=== PATIENT | male | born 1965 | race Caucasian/White ===

== ENCOUNTER 2017-12-16 11:31 | Outpatient (CLI) | payer MEDICARE ==
[~2017-12-16] VITALS: Ht 177.8 cm; Wt 125.0 kg
[2017-12-16 12:34] VITALS: BP 116/68; PULSE 78; TEMP 97.9
[2017-12-16] MEDS ORDERED: LIPITOR 40MG TA40 MG PO (12:36)
[2017-12-16] MEDS ORDERED: CARDIZEM CD 24240 MG PO (12:36)
[2017-12-16] MEDS ORDERED: PRINIVIL20 MG PO (12:37)
[2017-12-16] MEDS ORDERED: ASACOL HD800 MG PO (12:39)
[2017-12-16] MEDS ORDERED: PRADAXA 150MG150 MG PO (12:40)
[2017-12-16] MEDS ORDERED: GLUCOPHAGE1000 MG PO (12:40)
[2017-12-16] MEDS ORDERED: FLOMAX 0.40.4 MG/CAP PO (12:41)
[2017-12-16] MEDS ORDERED: LANTUS100 U/ML SQ (12:42)
[2017-12-16] MEDS ORDERED: NOVOLOG 100U100 U/M1 SQ (12:42)
[2017-12-16] MEDS ORDERED: CEPHALEXIN500 M1 PO (14:55)
[2017-12-16 15:05] VITALS: BP 107/61; PULSE 91; TEMP 97.8
== END 2017-12-16 15:47 | disposition home or self-care (01) ==
LOC: COL.CAR 11:31
DX: I48.0 Paroxysmal atrial fibrillation (principal); E11.9 Type 2 diabetes mellitus without complications; I10 Essential (primary) hypertension; E78.5 Hyperlipidemia, unspecified; K50.90 Crohn's disease, unspecified, without complications; G47.33 Obstructive sleep apnea (adult) (pediatric); E66.9 Obesity, unspecified; Z68.41 Body mass index [BMI] 40.0-44.9, adult; Z79.01 Long term (current) use of anticoagulants; Z79.4 Long term (current) use of insulin; Z87.891 Personal history of nicotine dependence; Z85.51 Personal history of malignant neoplasm of bladder; Z82.49 Family history of ischemic heart disease and other diseases of the circulatory system

== ENCOUNTER 2019-01-14 16:11 | Inpatient (IN) | payer MEDICARE ==
[~2019-01-14] VITALS: Ht 177.8 cm; Wt 122.4 kg
[~2019-01-14 16:11] MED LIST: ASACOL HD800 MG PO; CARDIZEM CD 24240 MG PO; CEPHALEXIN500 M1 PO; FLOMAX 0.40.4 MG/CAP PO; GLUCOPHAGE1000 MG PO; LANTUS100 U/ML SQ; LIPITOR 40MG TA40 MG PO; NOVOLOG 100U100 U/M1 SQ; PRADAXA 150MG150 MG PO; PRINIVIL20 MG PO
[2019-01-26 09:22] VITALS: BP 110/76; PULSE 88; TEMP 97.7
[2019-01-26] MEDS ORDERED: CALCIUM 600MG+D1 TAB PO (09:30)
[2019-01-26] MEDS ORDERED: CRESTOR5 MG PO (09:33)
[2019-01-26] MEDS ORDERED: LANTUS100 U/ML SQ (09:35)
[2019-01-26 09:44] LABS: HEMATOCRIT 47.1 % (42.0-52.0); HEMOGLOBIN 14.9 g/dl (13.5-18.0); MEAN CELL VOLUME 89 fl (80.0-100.0); MEAN CORPUSCULAR HEMOGLOBIN 28 pg (27.0-31.0); MEAN CORPUSCULAR HGB CONC 32 g/dl (33.0-37.0); MEAN PLATELET VOLUME 10.2 fl (7.4-10.4); PLATELET COUNT 307 K/mm3 (130-400); RED BLOOD COUNT 5.29 M/mm3 (4.20-5.60); REDCELL DISTRIBUTION WIDTH-CV 14.6 % (11.5-14.5)
[2019-01-26 09:49] LABS: INR 1.3 (0.8-3.0); PROTHROMBIN TIME 14.8 SECONDS (9.7-12.8)
[2019-01-26 09:56] LABS: ALBUMIN 4.1 gm/dL (3.5-5.0); BILIRUBIN,TOTAL 0.2 mg/dL (0.0-1.0); CALCIUM 9.6 mg/dL (8.4-10.2); CREATININE, serum 0.71 mg/dL (0.66-1.25); MAGNESIUM 1.8 mg/dL (1.6-2.3); POTASSIUM 4.5 mmol/L (3.4-5.0)
[2019-01-26 12:06] VITALS: BP 106/76; PULSE 81; TEMP 97
[2019-01-26 15:13] VITALS: BP 112/63; PULSE 75; TEMP 97.8
[2019-01-26 19:14] VITALS: BP 116/70; PULSE 83; TEMP 97.8
[2019-01-26 23:23] VITALS: BP 92/56; PULSE 76; TEMP 98.1
[2019-01-27 04:32] VITALS: BP 92/56; PULSE 76; TEMP 98.1
[2019-01-27 06:57] LABS: BASO % 0.3 % (0.0-2.0); EOS # 0.4 (0.0-0.7); EOS % 3.1 % (0-4.0); GRAN # 7.7 (1.4-6.5); GRAN % 63.5 % (42.2-75.2); HEMOGLOBIN 14.5 g/dl (13.5-18.0); LYMPH # 3.1 (1.2-3.4); LYMPH % 25.8 % (20.0-51.0); MEAN CELL VOLUME 89 fl (80.0-100.0); MEAN CORPUSCULAR HEMOGLOBIN 28 pg (27.0-31.0); MEAN CORPUSCULAR HGB CONC 32 g/dl (33.0-37.0); MEAN PLATELET VOLUME 10.6 fl (7.4-10.4); MONO # 0.8 (0.1-0.6); MONO % 6.9 % (1.7-9.3); PLATELET COUNT 309 K/mm3 (130-400); RED BLOOD COUNT 5.18 M/mm3 (4.20-5.60); REDCELL DISTRIBUTION WIDTH-CV 14.5 % (11.5-14.5)
[2019-01-27 07:06] LABS: CALCIUM 9.1 mg/dL (8.4-10.2); CREATININE, serum 0.81 mg/dL (0.66-1.25); POTASSIUM 4.2 mmol/L (3.4-5.0)
[2019-01-27 07:18] VITALS: BP 114/72; PULSE 72; TEMP 97.5
[2019-01-27 11:12] VITALS: BP 111/76; PULSE 81; TEMP 97.8
[2019-01-27 15:12] VITALS: BP 106/66; PULSE 73; TEMP 98
[2019-01-27 19:31] VITALS: BP 111/69; PULSE 90; TEMP 98.3
[2019-01-27 23:15] VITALS: BP 94/54; PULSE 76; TEMP 97.8
[2019-01-28 03:26] VITALS: BP 95/62; PULSE 82; TEMP 97.4
[2019-01-28 06:44] LABS: CREATININE, serum 0.89 mg/dL (0.66-1.25); POTASSIUM 4.1 mmol/L (3.4-5.0)
[2019-01-28 06:45] LABS: BASO % 0.3 % (0.0-2.0); EOS # 0.3 (0.0-0.7); EOS % 2.6 % (0-4.0); GRAN # 8.1 (1.4-6.5); GRAN % 63.6 % (42.2-75.2); HEMATOCRIT 47.7 % (42.0-52.0); HEMOGLOBIN 15.1 g/dl (13.5-18.0); LYMPH # 3.3 (1.2-3.4); LYMPH % 25.9 % (20.0-51.0); MEAN CELL VOLUME 89 fl (80.0-100.0); MEAN CORPUSCULAR HEMOGLOBIN 28 pg (27.0-31.0); MEAN CORPUSCULAR HGB CONC 32 g/dl (33.0-37.0); MEAN PLATELET VOLUME 10.3 fl (7.4-10.4); MONO # 0.9 (0.1-0.6); PLATELET COUNT 322 K/mm3 (130-400); RED BLOOD COUNT 5.38 M/mm3 (4.20-5.60); REDCELL DISTRIBUTION WIDTH-CV 14.6 % (11.5-14.5)
[2019-01-28 07:04] VITALS: BP 91/60; PULSE 86; TEMP 97.8
[2019-01-28 08:12] VITALS: BP 98/62; PULSE 81
[2019-01-28] MEDS ORDERED: BETAPACE 80MG80 MG PO (11:13)
[2019-01-28 11:30] VITALS: BP 114/73; PULSE 79; TEMP 98.5
== END 2019-01-28 12:59 | disposition home or self-care (01) | DRG 310 ==
LOC: MEDICAL 01-26 09:03
PROVIDERS: ADMIT Internal Medicine Cardiovascular Disease
DX: I48.91 Unspecified atrial fibrillation (principal); I10 Essential (primary) hypertension; E11.9 Type 2 diabetes mellitus without complications; Z95.0 Presence of cardiac pacemaker; Z85.51 Personal history of malignant neoplasm of bladder; C67.9 Malignant neoplasm of bladder, unspecified; I47.2 Ventricular tachycardia
CPT/HCPCS: J1815